=== PATIENT | female | born 1980 | race Caucasian/White ===

== ENCOUNTER → 2024-01-05 13:59 | Outpatient (REF) | payer OTHER, SELFPAY | LOC: WDC 13:59 | PROVIDERS: ATTENDING PHYSICIAN Family Medicine | DX: R92.2 Inconclusive mammogram (principal) | CPT/HCPCS: 76641 ==

== ENCOUNTER → 2024-06-11 10:18 | Outpatient (REF) | payer OTHER, SELFPAY | LOC: WDC 10:18 | PROVIDERS: ATTENDING PHYSICIAN Physician Assistant | DX: N63.20 Unspecified lump in the left breast, unspecified quadrant (principal); R22.32 Localized swelling, mass and lump, left upper limb; N63.32 Unspecified lump in axillary tail of the left breast | CPT/HCPCS: 76642; 77062; 77066 ==

== ENCOUNTER 2024-11-26 10:34 | Emergency (ER) | payer OTHER, SELFPAY ==
[2024-11-26] VITALS (9 sets, daily range): BP systolic 105–119; BP diastolic 71–84; PULSE 76–80; BMI 19.7
--- NOTE | 2024-11-26 11:42 | ED.GENMED ---
History of Present Illness
General
Chief Complaint: Dizziness
Source: patient
Exam Limitations: none
Time Seen by Provider: 11/26/24 11:28
History of Present Illness
History of Present Illness:
44yoF with a history of hypothyroidism presenting for evaluation of dizziness. Patient reports intermittent dizziness over the past 5 days. Dizziness is described as lightheaded and feeling like she has to pass out. Symptoms seem to come and go
randomly. Symptoms do seem to be worse with standing and head movement although she also has episodes when she is sitting. Symptoms last for a few minutes to an hour at a time. She did have an episode of dizziness last night that felt like the
room was spinning. She is also experiencing intermittent headaches and pain seems to migrate in location. She currently has pain in her right occipital region. She also reports nausea but denies any vomiting. Additionally, she is experiencing
intermittent chest discomfort. She denies any ear pain, tinnitus, hearing loss, shortness of breath, fevers. Patient was sick about a month ago with a stomach bug.
Past History
Past History
ED Past Medical History: Other (Hyponatremia, IBS)
ED Past Surgical History: Other (hernia repair.)
Social History
Tobacco: Non-smoker
Drug: None
Personal:
Living: with family
Employment: Employed
Phy Exam
General Physical Exam
General Presentation: well appearing and no apparent distress
General age: appears stated age
General Skin: warm and dry
General Habitus: normal
General Mental: alert
ENT Exam
ENT Exam: normocephalic
Eye Exam
Eye Exam: PERRL, EOMI and conjunctiva normal
Cardiovascular Exam
Cardiovascular Exam: regular rate/rhythm and no murmur
Pulmonary Exam
Pulmonary Exam: lungs clear, no respiratory distress, no rales, no crackles, no rhonchi and no wheezing
Neurological Exam
Neurological Exam: alert and other (PERRL. EOMs intact. Normal finger to nose and heel to harkins bilaterally. No focal deficits. )
[place] Coma Scale
Eye Opening: Spontaneous
Verbal Response: Oriented
Motor Response: Obeys Commands
GCS Total Score: 15
Skin Exam
Skin Exam: normal color and warm/dry
Psychiatric Exam
Psychiatric Exam: normal mood/affect
Course
Orders/Labs/Results
Orders:
Orders
11/26/24 11:15
ECG [Electrocardiogram (*1)] Urgent
Reason for Study: Vertigo / Dizzy
EKG- Treatment ONCE
11/26/24 11:41
CT Head W/o Iv Contrast Urgent
Comment:
Reason For Exam: dizziness
Orthostatic VS- Treatment ONCE
0.9% Sodium Chloride 1000 ml [Nss] 1,000 ml IV BOLUS
Test Result ONCE
11/26/24 11:46
Complete Blood Count/With Diff Urgent
Comprehensive Metabolic Panel Urgent
Free T4 Urgent
HCG, Serum Qualitative Screen Urgent
TSH Reflex To Free T4 Urgent
Troponin I Urgent
Abnormal Lab Results
11/26/24
11:46
WBC 3.9 L 10^3/uL
(4.8-10.8)
Monocytes % 10.2 H %
(1.7-9.3)
Chloride 110 H mmol/L
(98-107)
BUN < 2 L mg/dl
(7-17)
Creatinine 0.5 L mg/dL
(0.6-1.0)
Glucose 109 H mg/dl
(70-99)
Total Protein 5.7 L g/dl
(6.3-8.2)
TSH (Reflex) < 0.02 L uIU/ml
(0.47-4.68)
11/26/24 11:46
11/26/24 11:46
Vital Signs
Initial and Last Documented VS:
Initial Vital Signs
Temp Pulse Resp BP Pulse Ox
98.5 F 89 16 110/78 98
11/26/24 10:41 11/26/24 10:41 11/26/24 10:41 11/26/24 10:41 11/26/24 10:41
Last Documented Vital Signs
Temp Pulse Resp BP Pulse Ox
98.5 F 74 13 118/84 99
11/26/24 10:41 11/26/24 14:04 11/26/24 14:04 11/26/24 13:04 11/26/24 14:04
MDM/Problems Addressed
Differential Diagnosis Includes:
44yoF here with intermittent dizziness x 5 days. Described as lightheadedness but also had some vertigo last night. Also having some headaches and nausea. VSS. She is well appearing in no distress. Exam is reassuring. No ataxia or focal deficits
noted. Differential diagnosis includes but is not limited to: dehydration, orthostatic hypotension, arrhythmia, thyroid dysfunction
Initial ED plan: Check cardiac labs, TSH, EKG, CT head, and orthostatic vital signs. IV fluid bolus.
*EKG
Interpreted by ED Provider?: Yes
EKG Intrepretation Date: 11/26/24
Heart Rate: 78
Rate: normal
Rhythm: sinus
Amorita: normal axis
Interval: normal interval
QRS Pattern: normal QRS
Ischemia: no ischemia
*Critical Care Note
Total Time (30-74mins, 75-104mins- exclusive of procedures): Not Applicable
Update Note
Update Note:
Labs reveal a TSH of <0.02, free T4 is normal. Remainder of labs overall unremarkable including normal hemoglobin, renal function, glucose. EKG shows normal sinus rhythm without ischemic changes and troponin within normal limits. Head CT negative
for acute findings. Orthostatic vital signs are normal. Unclear etiology of symptoms. No indication for hospitalization. She was advised to follow-up closely with her PCP. She was also advised to discuss her TSH levels with her early childhood associate teacher
and discuss possible medication adjustments. ED return precautions discussed. Patient discharged in stable condition.
ED Attending Note
-
Portions of this chart may have been created with voice recognition software.� Occasional wrong word or��sound alike� substitutions may have occurred due to the inherent limitations of voice recognition software.
Discharge Plan
Departure
Patient Disposition: Home (Routine Discharge)
Date of Disposition: 11/26/24
Time of Disposition: 14:21
Patient with high blood pressure during this ER visit?: No
Discharge Problem:
Dizziness, Low TSH level
Instructions: Dizziness
Prescriptions:
No Action
bupropion HCl 150 MG tablet extended release 24 hr
150 mg PO DAILY
sennosides [senna] 1 TABLET tablet
1 tab PO DAILY
cyanocobalamin (vitamin B-12) 1,000 MCG tablet
1,000 mcg PO DAILY
magnesium oxide 500 MG tablet
500 mg PO DAILY
metronidazole 500 MG tablet
500 mg PO TID Qty: 15 0RF
levofloxacin 500 MG tablet
500 mg PO DAILY Qty: 5 0RF
prednisone 50 MG tablet
50 mg PO DAILY Qty: 4 0RF
Referrals:
Nila James MD [Family Provider] -
Activity Restrictions/Additional Instructions:
Your TSH levels were low today (<0.02). Please discuss this with your early childhood associate teacher and discuss medication adjustments.
Please follow-up with your family doctor as well. Return to the ER with any new or worsening symptoms.
Interventions
Interventions:
*Risk Screen - Suicide Last Done: 11/26/24 10:43
*General Assessment Last Done: 11/26/24 10:41
*Neglect/Abuse Screening Last Done: 11/26/24 10:43
*Nursing Disposition Last Done: 11/26/24 14:33
ED- Neurological Assessment Last Done: 11/26/24 12:03
Discharge Date and Time
Discharge Date/Time: 11/26/24 15:05
Print Language: GABONESE
[2024-11-26] MEDS: NSS 1000 IV (11:52)
[2024-11-26 11:56] LABS: % Basophils 0.5 % (0-2); % Eosinophils 0.8 % (0-6); % Lymphocytes 42.1 % (20.5-51.1); % Monocytes 10.2 % (1.7-9.3); % Neutrophils 46.4 % (42.2-75.2); Absolute Lymphocytes 1.7 10^3/uL (1.2-3.4); Absolute Monocytes 0.4 10^3/uL (0.1-0.6); Absolute Neutrophils 1.8 10^3/uL (1.4-6.5); Hematocrit 38.7 % (37.0-47.0); Hemoglobin 12.9 g/dL (12.0-16.0); Mean Corp Hgb Conc. 33.3 g/dL (33.0-37.0); Mean Corpuscular Hgb 29.9 pg (27.0-31.0); Mean Corpuscular Volume 89.8 fL (81.0-99.0); Mean Platelet Volume 10.1 fL (7.4-10.4); Nucleated Red Blood Cells % 0 %; Platelet Count 171 10^3/uL (130-400); Red Blood Cell Count 4.31 10^6/uL (4.20-5.40); Red Cell Dist. Width 11.8 % (11.5-14.5); White Blood Cell Count 3.9 10^3/uL (4.8-10.8)
[2024-11-26 12:10] LABS: HCG, Serum Qualitative Screen Negative
[2024-11-26 12:13] LABS: ALT (SGPT) 24 U/L (0-35); AST (SGOT) 26 U/L (14-36); Albumin 3.6 g/dl (3.5-5.0); Alkaline Phosphatase 53 U/L (38-126); Blood Urea Nitrogen < 2 mg/dl (7-17); Calcium 9.7 mg/dl (8.4-10.2); Carbon Dioxide 24 mmol/L (22-30); Chloride 110 mmol/L (98-107); Estimated Creatinine Clearance 105 ml/min; Glucose 109 mg/dl (70-99); Potassium 4.6 mmol/L (3.5-5.1); Sodium 139 mmol/L (135-145); Total Bilirubin 0.4 mg/dl (0.2-1.3); Total Protein 5.7 g/dl (6.3-8.2); eGFR > 60.00
[2024-11-26 12:25] LABS: Troponin I < 0.012 ng/ml
[2024-11-26 12:48] LABS: TSH Reflex To Free T4 < 0.02 uIU/ml (0.47-4.68)
[2024-11-26 14:21] LABS: Free T4 1.32 ng/dl (0.78-2.19)
== END 2024-11-26 15:05 | disposition home or self-care (01) ==
LOC: EMR 10:34
PROVIDERS: Physician Assistant; EMERGENCY PHYSICIAN Emergency Medicine; FAMILY PHYSICIAN Family Medicine
DX: R42 Dizziness and giddiness (principal); R94.6 Abnormal results of thyroid function studies
CPT/HCPCS: 99285; 96360; 70450; 80053; 84439; 84443; 84484; 84703; 85025; 93005